=== PATIENT | female | born 1990 | race Caucasian/White ===

== ENCOUNTER 2018-04-11 20:05 | Emergency (ER) | payer OTHER ==
[~2018-04-11] VITALS: Ht 160 cm; Wt 107.5 kg
[2018-04-11 22:18] VITALS: BP 118/78
== END 2018-04-11 22:18 | disposition home or self-care (01) ==
LOC: ED 20:05
DX: O26.893 Other specified pregnancy related conditions, third trimester (principal); Z3A.34 34 weeks gestation of pregnancy; R21 Rash and other nonspecific skin eruption